=== PATIENT | female | born 1970 | race Hispanic/Latino ===

== ENCOUNTER 2019-05-20 15:50 | Emergency (ER) | payer MEDICARE ==
[2019-05-20 17:58] LABS: Basophils # (Auto) 0.1 K/mm3 (0.0-0.1); Basophils % (Auto) 0.4 % (0.0-1.8); Eosinophils # (Auto) 0.3 K/mm3 (0.0-0.4); Eosinophils % (Auto) 2.4 % (0.0-4.3); Hematocrit 39.4 % (30.3-42.9); Hemoglobin 13.2 gm/dl (10.1-14.3); Lymphocytes # (Auto) 2.7 K/mm3 (1.2-5.4); Lymphocytes % (Auto) 22.8 % (13.4-35.0); Mean Corpuscular HGB Conc 34 % (30-34); Mean Corpuscular Volume 90 fl (79-97); Monocytes % (Auto) 7.9 % (0.0-7.3); Platelet Count 238 K/mm3 (140-440); Red Blood Count 4.37 M/mm3 (3.65-5.03); Red Cell Distribution Width 13.6 % (13.2-15.2)
[2019-05-20 18:18] VITALS: BP 169/99
[2019-05-20 18:20] LABS: Alanine Aminotransferase 10 units/L (7-56); Albumin 3.9 g/dL (3.9-5); BUN/Creatinine Ratio 13; Blood Urea Nitrogen 13 mg/dL (7-17); Calcium 9.4 mg/dL (8.4-10.2); Hemolysis Index 2
--- NOTE | 2019-05-20 18:21 | Emergency Department Report ---
ED General Adult HPI - General Chief complaint: Weakness Stated complaint: FATIGUE/BODY ACHES Time Seen by Provider: 05/20/19 17:30 Source: patient Mode of arrival: Ambulatory Limitations: No Limitations - History of Present Illness Initial comments: Patient is a 49-year-old female presents emergency room with complaints of generalized fatigue and generalized body aches that began a month ago. The patient states that she really presents the emergency room for HIV testing. She states that she thinks she had a possible exposure but states she did not want to discuss the details. she does not report any abuse. Patient does not report any chest pain, shortness of breath, abdominal pain, fever, weight loss, vomiting, diarrhea, any other symptoms. She states that she has a past medical history of Crohn's. She states that she needs to have lab work done so she can get back on her Humira. - Related Data Previous Rx's Medication Instructions Recorded Last Taken Type HYDROcodone/APAP 10-325 [[place] 1 each PO Q8HR PRN #20 tablet 08/09/14 Unknown Rx 10/325] Hyoscyamine Subl [Levsin Sl 0.125] 0.125 mg SL Q4HR PRN #20 tablet 08/09/14 Unknown Rx Metoclopramide HCl [Reglan] 10 mg PO TID PRN #20 tablet 08/09/14 Unknown Rx Promethazine HCl [Phenergan] 25 mg RC TID PRN #6 supp.rect 08/09/14 Unknown Rx hydrOXYzine HCL [Atarax] 50 mg PO Q6HR PRN #30 tablet 08/26/14 Unknown Rx predniSONE [Deltasone] 20 mg PO QDAY #5 tab 08/26/14 Unknown Rx traMADoL [Ultram 50 MG tab] 50 mg PO Q6HR PRN #10 tablet 08/26/14 Unknown Rx Allergies Allergy/AdvReac Type Severity Reaction Status Date / Time shellfish derived Allergy Hives Verified 08/26/14 21:28 ED Review of Systems ROS: Stated complaint: FATIGUE/BODY ACHES Other details as noted in HPI Comment: All other systems reviewed and negative ED Past Medical Hx - Past Medical History Previous Medical History?: Yes Hx Hypertension: Yes Hx Psychiatric Treatment: Yes (ANXIETY/ DEPRESSION) Additional medical history: CROHN'S - Surgical History Past Surgical History?: Yes Additional Surgical History: T & A. RADIOFREQUENCY ABLATION OF NECK - Social History Smoking Status: Never Smoker Substance Use Type: None - Medications Home Medications: Home Medications Medication Instructions Recorded Confirmed Last Taken Type HYDROcodone/APAP 10-325 [[place] 1 each PO Q8HR PRN #20 tablet 08/09/14 Unknown Rx 10/325] Hyoscyamine Subl [Levsin Sl 0.125] 0.125 mg SL Q4HR PRN #20 tablet 08/09/14 Unknown Rx Metoclopramide HCl [Reglan] 10 mg PO TID PRN #20 tablet 08/09/14 Unknown Rx Promethazine HCl [Phenergan] 25 mg RC TID PRN #6 supp.rect 08/09/14 Unknown Rx hydrOXYzine HCL [Atarax] 50 mg PO Q6HR PRN #30 tablet 08/26/14 Unknown Rx predniSONE [Deltasone] 20 mg PO QDAY #5 tab 08/26/14 Unknown Rx traMADoL [Ultram 50 MG tab] 50 mg PO Q6HR PRN #10 tablet 08/26/14 Unknown Rx ED Physical Exam - General Limitations: No Limitations General appearance: alert, in no apparent distress - Head Head exam: Present: atraumatic, normocephalic - Eye Eye exam: Present: normal appearance - ENT ENT exam: Present: mucous membranes moist - Respiratory Respiratory exam: Present: normal lung sounds bilaterally. Absent: respiratory distress, wheezes, rales, rhonchi, stridor, chest wall tenderness, accessory muscle use, decreased breath sounds, prolonged expiratory - Cardiovascular Cardiovascular Exam: Present: regular rate, normal rhythm, normal heart sounds. Absent: systolic murmur, diastolic murmur, rubs, gallop - Neurological Exam Neurological exam: Present: alert, oriented X3 - Psychiatric Psychiatric exam: Present: normal affect, normal mood - Skin Skin exam: Present: warm, dry, intact ED Course Vital Signs 05/20/19 16:09 Temperature 98.9 F Pulse Rate 83 Respiratory 20 Rate Blood Pressure 169/99 O2 Sat by Pulse 97 Oximetry ED Medical Decision Making - Lab Data Result diagrams: 05/20/19 17:41 05/20/19 17:41 Lab Results 05/20/19 05/20/19 Range/Units 17:41 17:41 WBC 12.0 H (4.5-11.0) K/mm3 RBC 4.37 (3.65-5.03) M/mm3 Hgb 13.2 (10.1-14.3) gm/dl Hct 39.4 (30.3-42.9) % MCV 90 (79-97) fl MCH 30 (28-32) pg MCHC 34 (30-34) % RDW 13.6 (13.2-15.2) % Plt Count 238 (140-440) K/mm3 Lymph % (Auto) 22.8 (13.4-35.0) % [place] % (Auto) 7.9 H (0.0-7.3) % Eos % (Auto) 2.4 (0.0-4.3) % Baso % (Auto) 0.4 (0.0-1.8) % Lymph # 2.7 (1.2-5.4) K/mm3 [place] # 1.0 H (0.0-0.8) K/mm3 Eos # 0.3 (0.0-0.4) K/mm3 Baso # 0.1 (0.0-0.1) K/mm3 Seg Neutrophils % 66.5 (40.0-70.0) % Seg Neutrophils # 8.0 H (1.8-7.7) K/mm3 Sodium 140 (137-145) mmol/L Potassium 3.9 (3.6-5.0) mmol/L Chloride 106.5 (98-107) mmol/L Carbon Dioxide 21 L (22-30) mmol/L Anion Gap 16 mmol/L BUN 13 (7-17) mg/dL Creatinine 1.0 (0.7-1.2) mg/dL Estimated GFR 59 ml/min BUN/Creatinine Ratio 13 % Glucose 119 H (65-100) mg/dL Calcium 9.4 (8.4-10.2) mg/dL Total Bilirubin < 0.20 (0.1-1.2) mg/dL AST 10 (5-40) units/L ALT 10 (7-56) units/L Alkaline Phosphatase 68 (35-129) units/L Total Protein 6.5 (6.3-8.2) g/dL Albumin 3.9 (3.9-5) g/dL Albumin/Globulin Ratio 1.5 % - Medical Decision Making Patient is a 49-year-old female presents emergency room with complaints of generalized fatigue and generalized body aches that began a month ago. The patient states that she really presents the emergency room for HIV testing. She states that she thinks she had a possible exposure but states she did not want to discuss the details. she does not report any abuse. Patient does not report any chest pain, shortness of breath, abdominal pain, fever, weight loss, vomiting, diarrhea, any other symptoms. She states that she has a past medical history of Crohn's. She states that she needs to have lab work done so she can get back on her Humira. Patient's vitals are stable. I advised patient that we could do basic blood work here to make sure she was not anemic, had any electrolyte disturbances, any other abnormalities in her basic lab work. I discussed with patient that we do not do rapid HIV testing from the emergency department and that we have patients see the health department that way they can follow-up with the patient and have a repeat HIV test in 6 months. Patient was agreeable with plan. I was informed by EMT that patient suddenly wanted to leave and signed AMA form. The patient is alert and oriented x3. The patient exhibits decision-making capacity. The patient is free from distracting injury. The risk of leaving without a complete medical examination, and AGAINST MEDICAL ADVICE, were explained to the patient by the EMT, and they included , disability, paralysis, permanent loss of quality of life. Patient verbalized understanding to these and was able to articulate these risk in their own words. Critical care attestation.: If time is entered above; I have spent that time in minutes in the direct care of this critically ill patient, excluding procedure time. ED Disposition Clinical Impression: Generalized body aches Fatigue Qualifiers: Fatigue type: unspecified Qualified Code(s): R53.83 - Other fatigue Disposition: DC-07 LEFT AGAINST MED ADVICE Is pt being admited?: No Does the pt Need Aspirin: No Condition: Undetermined Referrals: ABEL CHRISTIANSEN MD [Other] - 3-5 Days [facility] [Outside] - 3-5 Days Forms: AMA Form Time of Disposition: 18:21 Print Language: SRI LANKAN
== END 2019-05-20 18:06 | disposition left against medical advice (07) ==
LOC: ED 15:50
DX: R53.83 Other fatigue (principal); M79.18 Myalgia, other site; I10 Essential (primary) hypertension; F41.9 Anxiety disorder, unspecified; F32.89 Other specified depressive episodes; K50.90 Crohn's disease, unspecified, without complications; Z79.899 Other long term (current) drug therapy; Z91.013 Allergy to seafood
CPT/HCPCS: 36415; 80053; 85025; 99283

== ENCOUNTER 2019-06-11 23:36 | Emergency (ER) | payer MEDICARE ==
[2019-06-12 00:10] VITALS: BP 148/98
[2019-06-12 00:13] LABS: Basophils # (Auto) 0.1 K/mm3 (0.0-0.1); Basophils % (Auto) 0.6 % (0.0-1.8); Eosinophils # (Auto) 0.2 K/mm3 (0.0-0.4); Eosinophils % (Auto) 2.1 % (0.0-4.3); Hematocrit 38.7 % (30.3-42.9); Hemoglobin 13.5 gm/dl (10.1-14.3); Lymphocytes % (Auto) 17.8 % (13.4-35.0); Mean Corpuscular HGB Conc 35 % (30-34); Mean Corpuscular Volume 87 fl (79-97); Monocytes # (Auto) 0.9 K/mm3 (0.0-0.8); Monocytes % (Auto) 7.7 % (0.0-7.3); Platelet Count 184 K/mm3 (140-440); Red Blood Count 4.45 M/mm3 (3.65-5.03); Red Cell Distribution Width 13.5 % (13.2-15.2)
--- NOTE | 2019-06-12 00:28 | Emergency Department Report ---
ED General Adult HPI - General Chief complaint: Psych Stated complaint: MH/HEARING VOICES OF GOD Time Seen by Provider: 06/11/19 23:55 Source: patient, RN notes reviewed Mode of arrival: Ambulatory Limitations: No Limitations - History of Present Illness Initial comments: Patient is a 49-year-old female. She is not known to myself previously. She states that she is not , denies fever, cough, exposure to coronavirus. She has a history of bipolar, and is currently maintained on Wellbutrin medication. This is a relatively new medication for her. Previously, she was maintained on Effexor, but reports that this was discontinued secondary to intolerable side effects. She has been on Wellbutrin for 3 weeks. She reports that this medication is having intolerable side effects. She reports hearing "horrible things", and she reports "hearing things inside my mind." She is not homicidal or suicidal. She denies overdose. She denies physical pain. She denies hallucinations, audio and visual, but endorses that she is "hearing things inside my mind." Symptoms present for the past 3 weeks and starting this medication. She denies physical pain, and denies additional symptoms. Her symptoms do not have exacerbating or relieving factors that she is aware of, or radiation. -: Gradual, week(s) Quality: other Consistency: other Improves with: other Worsens with: other - Related Data Previous Rx's Medication Instructions Recorded Last Taken Type HYDROcodone/APAP 10-325 [[place] 1 each PO Q8HR PRN #20 tablet 08/09/14 Unknown Rx 10/325] Hyoscyamine Subl [Levsin Sl 0.125] 0.125 mg SL Q4HR PRN #20 tablet 08/09/14 Unknown Rx Metoclopramide HCl [Reglan] 10 mg PO TID PRN #20 tablet 08/09/14 Unknown Rx Promethazine HCl [Phenergan] 25 mg RC TID PRN #6 supp.rect 08/09/14 Unknown Rx hydrOXYzine HCL [Atarax] 50 mg PO Q6HR PRN #30 tablet 08/26/14 Unknown Rx predniSONE [Deltasone] 20 mg PO QDAY #5 tab 08/26/14 Unknown Rx traMADoL [Ultram 50 MG tab] 50 mg PO Q6HR PRN #10 tablet 08/26/14 Unknown Rx Allergies Allergy/AdvReac Type Severity Reaction Status Date / Time No Known Allergies Allergy Verified 06/11/19 23:47 ED Review of Systems ROS: Stated complaint: MH/HEARING VOICES OF GOD Other details as noted in HPI Comment: See history of present illness for review of system ED Past Medical Hx - Past Medical History Previous Medical History?: Yes Hx Hypertension: Yes Hx Diabetes: Yes Hx Psychiatric Treatment: Yes (ANXIETY/ DEPRESSION Bipolar) Additional medical history: CROHN'S - Surgical History Past Surgical History?: Yes Additional Surgical History: T & A. RADIOFREQUENCY ABLATION OF NECK - Social History Smoking Status: Current Every Day Smoker Substance Use Type: None - Medications Home Medications: Home Medications Medication Instructions Recorded Confirmed Last Taken Type HYDROcodone/APAP 10-325 [[place] 1 each PO Q8HR PRN #20 tablet 08/09/14 Unknown Rx 10/325] Hyoscyamine Subl [Levsin Sl 0.125] 0.125 mg SL Q4HR PRN #20 tablet 08/09/14 Unknown Rx Metoclopramide HCl [Reglan] 10 mg PO TID PRN #20 tablet 08/09/14 Unknown Rx Promethazine HCl [Phenergan] 25 mg RC TID PRN #6 supp.rect 08/09/14 Unknown Rx hydrOXYzine HCL [Atarax] 50 mg PO Q6HR PRN #30 tablet 08/26/14 Unknown Rx predniSONE [Deltasone] 20 mg PO QDAY #5 tab 08/26/14 Unknown Rx traMADoL [Ultram 50 MG tab] 50 mg PO Q6HR PRN #10 tablet 08/26/14 Unknown Rx ED Physical Exam - General Limitations: No Limitations General appearance: alert, in no apparent distress, obese - Head Head exam: Present: atraumatic, normocephalic - Eye Eye exam: Present: normal appearance, EOMI. Absent: nystagmus - ENT ENT exam: Present: normal exam, normal orophraynx, mucous membranes moist, normal external ear exam - Neck Neck exam: Present: normal inspection, full ROM. Absent: tenderness, meningismus - Respiratory Respiratory exam: Present: normal lung sounds bilaterally. Absent: respiratory distress - Cardiovascular Cardiovascular Exam: Present: regular rate, normal rhythm, normal heart sounds. Absent: bradycardia, tachycardia, irregular rhythm, systolic murmur, diastolic murmur, rubs, gallop - GI/Abdominal GI/Abdominal exam: Present: soft. Absent: distended, tenderness, guarding, rebound, rigid, pulsatile mass - Extremities Exam Extremities exam: Present: normal inspection, full ROM, other (2+ pulses noted in the bilateral upper extremities. There is no long bony tenderness. The mu scular compartments are soft. The pelvis is stable.). Absent: calf tenderness - Back Exam Back exam: Present: normal inspection, full ROM. Absent: tenderness, CVA tenderness (R), CVA tenderness (L), paraspinal tenderness, vertebral tenderness - Neurological Exam Neurological exam: Present: alert, oriented X3, normal gait, other (No facial droop. Tongue midline. Extraocular movements intact bilaterally. Facial sen sation intact to light touch in V1, V2, V3 distribution bilaterally. 5 and a 5 strength in 4 extremities. Sensation intact to light touch in 4 extremities.). Absent: motor sensory deficit - Psychiatric Psychiatric exam: Present: anxious. Absent: homicidal ideation, suicidal ideation - Skin Skin exam: Present: warm, dry, intact, normal color. Absent: rash ED Course Vital Signs 06/11/19 23:39 Temperature 98.0 F Pulse Rate 72 Respiratory 16 Rate Blood Pressure 148/98 O2 Sat by Pulse 98 Oximetry ED Medical Decision Making - Lab Data Result diagrams: 06/11/19 23:59 Vital Signs 06/11/19 23:39 Temperature 98.0 F Pulse Rate 72 Respiratory 16 Rate Blood Pressure 148/98 O2 Sat by Pulse 98 Oximetry Lab Results 06/11/19 06/11/19 Range/Units 23:59 23:59 WBC 11.4 H (4.5-11.0) K/mm3 RBC 4.45 (3.65-5.03) M/mm3 Hgb 13.5 (10.1-14.3) gm/dl Hct 38.7 (30.3-42.9) % MCV 87 (79-97) fl MCH 30 (28-32) pg MCHC 35 H (30-34) % RDW 13.5 (13.2-15.2) % Plt Count 184 (140-440) K/mm3 Lymph % (Auto) 17.8 (13.4-35.0) % [place] % (Auto) 7.7 H (0.0-7.3) % Eos % (Auto) 2.1 (0.0-4.3) % Baso % (Auto) 0.6 (0.0-1.8) % Lymph # 2.0 (1.2-5.4) K/mm3 [place] # 0.9 H (0.0-0.8) K/mm3 Eos # 0.2 (0.0-0.4) K/mm3 Baso # 0.1 (0.0-0.1) K/mm3 Seg Neutrophils % 71.8 H (40.0-70.0) % Seg Neutrophils # 8.2 H (1.8-7.7) K/mm3 HCG, Qual Negative (Negative) - Medical Decision Making Differential diagnosis, including but not limited to: Medication side effect, chronic bipolar disorder Assessment and plan: 49-year-old female, who is afebrile, with reassuring vital signs, walking with a steady gait, clinically sober, who is not homicidal or suicidal, does not meet 1013 criteria, without endorsed medical complaints, presenting with presumed medication side effects. The patient does not appear to have an emergent medical condition present at this time. The patient is counseled that she should closely follow-up with an outpatient psychiatrist or mental health specialist as soon as possible to have her psychiatric medications adjusted and tailored. Unfortunately, the patient presented after hours, and we do not have a psychiatric liaison available to assist with this. Furthermore, given the current coronavirus pandemic, and given lack of acute medical necessity, remaining in the emergency room for psychiatric consultation in the morning when they arrive, puts the patient at unnecessary and inappropriate medical risk secondary to possible coronavirus exposure. Therefore, the patient is counseled to follow-up with an outpatient psychiatrist or mental health specialist soon as possible. The patient was given explicit instructions by myself that she may present to [facility] psychiatric facility, just around the corner, for further evaluation tonight, if she so desires. I explained to the patient the geographic location of the aforementioned facility. Laboratory studies were ordered prior to my personal evaluation. Critical care attestation.: If time is entered above; I have spent that time in minutes in the direct care of this critically ill patient, excluding procedure time. ED Disposition Clinical Impression: Medication side effect Disposition: DC-01 TO HOME OR SELFCARE Is pt being admited?: No Does the pt Need Aspirin: No Condition: Stable Additional Instructions: Recommend that patient follow-up with her psychiatrist or therapist as soon as possible to reinvestigate and necessity of Wellbutrin medication, and explore alternative medication options. For the patient's convenience, [facility], which is a local psychiatric facility, is just around the corner, and open tonight, if the patient would like to seek psychiatric consultation and evaluation. At this point in time, the patient does not appear to have an immediate medical contraindication For psychiatric evaluation and placement, if she decides to proceed and pursue psychiatric evaluation this evening. There is no medically emergent condition present this evening. [facility] hospital in the [place], [place] Address: [address] [place] [address] [place] [address] Referrals: [facility] [Outside] - 3-5 Days
== END 2019-06-12 00:50 | disposition home or self-care (01) ==
LOC: ED 23:36 → EEVIPCON 23:36 → ED 06-12 00:50
DX: T43.295A Adverse effect of other antidepressants, initial encounter (principal); R44.0 Auditory hallucinations; I10 Essential (primary) hypertension; E11.9 Type 2 diabetes mellitus without complications; F31.9 Bipolar disorder, unspecified; F17.200 Nicotine dependence, unspecified, uncomplicated; Y92.89 Other specified places as the place of occurrence of the external cause
CPT/HCPCS: 36415; 84703; 85025

== ENCOUNTER 2021-05-03 15:04 | Emergency (ER) | payer MEDICARE ==
[2021-05-03 15:26] VITALS: BP 136/92
[2021-05-03] MEDS ORDERED: IBUPROFEN 800 MG TAB PO STA (17:11)
[2021-05-03] MEDS ORDERED: ACETAMINOPHEN 500 MG TAB PO STA (17:11)
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
== END 2021-05-03 18:47 | disposition left against medical advice (07) ==
LOC: ED 15:04
DX: M54.2 Cervicalgia (principal); F17.200 Nicotine dependence, unspecified, uncomplicated; I10 Essential (primary) hypertension; Y99.8 Other external cause status; E11.9 Type 2 diabetes mellitus without complications; V89.2XXA Person injured in unspecified motor-vehicle accident, traffic, initial encounter; Y93.89 Activity, other specified; Y92.89 Other specified places as the place of occurrence of the external cause
CPT/HCPCS: 72040; 99283

== ENCOUNTER 2021-09-29 22:20 | Emergency (ER) | payer MEDICARE ==
[2021-09-29 22:41] VITALS: BP 128/88
== END 2021-09-29 23:40 | disposition left against medical advice (07) ==
LOC: ED 22:20
DX: R10.9 Unspecified abdominal pain (principal); Z53.21 Procedure and treatment not carried out due to patient leaving prior to being seen by health care provider